=== PATIENT | male | born 1995 | race Caucasian/White ===

== ENCOUNTER 2020-12-05 19:18 | Emergency (ER) | payer BC ==
[2020-12-05 19:37] VITALS: BP 123/82; PULSE 73; TEMP 97.8; BMI 20.9
== END 2020-12-05 20:17 | disposition home or self-care (01) ==
LOC: FER 19:18
PROC: 0JQ10ZZ Repair Face Subcutaneous Tissue and Fascia, Open Approach (ICD-10-PCS; principal; 2020-12-05)
DX: S01.81XA Laceration without foreign body of other part of head, initial encounter (principal)
CPT/HCPCS: 12011; 99284-25